=== PATIENT | female | born 1980 | race African-American/Black ===

== ENCOUNTER 2025-01-09 02:18 | Inpatient (IN) | payer OTHER, MEDICAID ==
[~2025-01-09] VITALS: Ht 165.1 cm; Wt 94.3 kg
[2025-01-09 02:20] VITALS: O2SAT 99
[2025-01-09 03:18] LABS: HEMATOCRIT. 24.8 % (36.0-48.0); MEAN PLATELET VOLUME 8.7 fl (7.4-10.4); PLATELET 90 x1000/uL (130-400); RED BLOOD CELL COUNT 3.78 mill/uL (4.2-5.4); RED CELL DISTRIBUTION WIDTH 21.8 % (11.6-14.6)
[2025-01-09 03:23] LABS: CREATININE 0.6 mg/dL (0.6-1.0); UREA NITROGEN BLOOD < 5 mg/dL (9-23)
[2025-01-09 03:25] LABS: ASPARTATE AMINOTRANSFERASE 85 IU/L (<34); BILIRUBIN DIRECT 0.8 mg/dL (<=3.0); BILIRUBIN TOTAL 1.8 mg/dL (0.1-1.0); PROTEIN TOTAL 7.3 g/dL (6.0-8.3); TROPONIN I HIGH SENSITIVITY < 4 ng/L (3.0-34)
[2025-01-09 04:18] LABS: HEMOGLOBIN. 6.5 g/dL (12.0-16.0)
[2025-01-09 04:30] LABS: HCG SCREEN NEGATIVE
[2025-01-09] MEDS: POTASSIUM CHLORIDE 20MEQ/PACKET PO ONE (05:12)
[2025-01-09] MEDS: ACETAMINOPHEN WITH CODEINE 300/30MG TABLET PO ONE (06:00)
[2025-01-09 07:17] LABS: EOSINOPHILS % MANUAL 2.0 % (0.0-5.0); LYMPHOCYTES % MANUAL 47.0 % (20.0-60.0); MONOCYTES % MANUAL 6.0 % (2.0-8.0); NEUTROPHILS % MANUAL 45.0 % (45.0-75.0); PLATELET ESTIMATE DECREASED
[2025-01-09 08:30] VITALS: BP 124/48; PULSE 88; RESP 18; RESP 8; TEMP 36.8; TEMP 36.8628; O2SAT 98
[2025-01-09] MEDS ORDERED: IPRATROPIUM/ALBUTEROL 0.5-3(2.5)MG/3ML NEB HHN PRN (09:00)
[2025-01-09] MEDS ORDERED: CLONIDINE 0.1MG TABLET PO PRN (09:00)
[2025-01-09] MEDS ORDERED: DOCUSATE SODIUM 100MG CAPSULE PO PRN (09:00)
[2025-01-09] MEDS ORDERED: MAGNESIUM/ALUMINUM HYDROXIDE/SIMETHICONE 30ML UDC PO PRN (09:00)
[2025-01-09] MEDS ORDERED: POTASSIUM CHLORIDE 20MEQ TABLET SR PO PRN (09:00)
[2025-01-09] MEDS ORDERED: HYDROCODONE/ACETAMINOPHEN 5/325MG TABLET PO PRN (09:00)
[2025-01-09 12:00] VITALS: BP 129/58; PULSE 85; RESP 18; TEMP 36.7; O2SAT 99
[2025-01-09 13:18] LABS: HEMATOCRIT. 25.9 % (36.0-48.0); HEMOGLOBIN. 7.2 g/dL (12.0-16.0); MEAN PLATELET VOLUME 9.1 fl (7.4-10.4); PLATELET 91 x1000/uL (130-400); RED BLOOD CELL COUNT 3.88 mill/uL (4.2-5.4); RED CELL DISTRIBUTION WIDTH 23.4 % (11.6-14.6)
[2025-01-09 13:29] LABS: CREATININE 0.5 mg/dL (0.6-1.0); UREA NITROGEN BLOOD < 5 mg/dL (9-23)
[2025-01-09 13:31] LABS: ASPARTATE AMINOTRANSFERASE 63 IU/L (<34); BILIRUBIN TOTAL 2.6 mg/dL (0.1-1.0); PROTEIN TOTAL 6.9 g/dL (6.0-8.3)
[2025-01-09 13:32] LABS: INR 1.3
[2025-01-09 14:35] LABS: FOLIC ACID (FOLATE) SERUM 4.19 ng/mL (>5.38); VITAMIN B12 SERUM 551 pg/mL (211-911)
[2025-01-09] MEDS: PANTOPRAZOLE SODIUM 40 MG/VIAL IV SCH (15:56)
[2025-01-09 17:57] LABS: LYMPHOCYTES % MANUAL 33.0 % (20.0-60.0); MONOCYTES % MANUAL 6.0 % (2.0-8.0); NEUTROPHILS % MANUAL 61.0 % (45.0-75.0); PLATELET ESTIMATE DECREASED
[2025-01-09 20:00] VITALS: BP 114/54; PULSE 85; RESP 17; TEMP 36.5; O2SAT 99
[2025-01-09] MEDS: ENOXAPARIN 40MG/0.4ML SYR SUBCUT SCH (21:35)
[2025-01-09] MEDS: ACETAMINOPHEN 325MG TABLET PO PRN (21:45)
[2025-01-09] MEDS: ONDANSETRON HCL 4MG/2ML INJ IV PRN (21:52)
[2025-01-10] VITALS: BP_SYST 115; BP_SYST 128; BP_DIAS 53; BP_DIAS 75; PULSE 80; PULSE 88; RESP 17; RESP 18; TEMP 36.3; TEMP 36.4; O2SAT 91; O2SAT 99
[2025-01-10 04:00] VITALS: BP 100/59; PULSE 83; RESP 17; TEMP 36.4; O2SAT 95
[2025-01-10 06:50] LABS: CREATININE 0.6 mg/dL (0.6-1.0); TROPONIN I HIGH SENSITIVITY < 4 ng/L (3.0-34)
[2025-01-10 06:51] LABS: LDL CHOLESTEROL 88 mg/dL (5-100); TRIGLYCERIDE 115 mg/dL (0-150); UREA NITROGEN BLOOD 6 mg/dL (9-23)
[2025-01-10 06:52] LABS: ASPARTATE AMINOTRANSFERASE 49 IU/L (<34); BILIRUBIN DIRECT 1.2 mg/dL (<=3.0); PHOSPHORUS 3.4 mg/dL (2.5-4.9)
[2025-01-10 06:53] LABS: BILIRUBIN TOTAL 2.9 mg/dL (0.1-1.0); PROTEIN TOTAL 6.6 g/dL (6.0-8.3)
[2025-01-10 07:04] LABS: HEMATOCRIT. 24.3 % (36.0-48.0); MEAN PLATELET VOLUME 8.8 fl (7.4-10.4); PLATELET 78 x1000/uL (130-400); RED BLOOD CELL COUNT 3.66 mill/uL (4.2-5.4); RED CELL DISTRIBUTION WIDTH 22.7 % (11.6-14.6)
[2025-01-10 07:40] LABS: HEMOGLOBIN. 6.9 g/dL (12.0-16.0)
[2025-01-10 08:00] VITALS: BP 105/45; PULSE 89; RESP 16; TEMP 36.5; O2SAT 100
[2025-01-10] MEDS: FERROUS SULFATE 325MG TABLET PO SCH (10:10)
[2025-01-10] MEDS: DOCUSATE SODIUM 100MG CAPSULE PO SCH (10:11)
[2025-01-10] MEDS: FOLIC ACID 1MG TABLET PO SCH (10:11)
[2025-01-10] MEDS: ASCORBIC ACID 500 MG TABLET PO SCH (10:11)
[2025-01-10 14:14] LABS: BAND% 4.0 % (1.0-6.0); BASOPHILS % MANUAL 1.0 % (0.0-2.0); EOSINOPHILS % MANUAL 3.0 % (0.0-5.0); LYMPHOCYTES % MANUAL 38.0 % (20.0-60.0); MONOCYTES % MANUAL 13.0 % (2.0-8.0); NEUTROPHILS % MANUAL 41.0 % (45.0-75.0); PLATELET ESTIMATE DECREASED
[2025-01-10] MEDS: MAGNESIUM 1 G PREMIX 100 ML IV SCH (15:24)
[2025-01-10 16:00] VITALS: BP 113/44; PULSE 101; RESP 16; TEMP 36.6; O2SAT 100
[2025-01-10] MEDS ORDERED: IOHEXOL-300 100 ML BOTTLE ONE ×2 (16:22→23:24)
[2025-01-10 17:47] LABS: RED CELL DISTRIBUTION WIDTH 23.3 % (11.6-14.6)
[2025-01-10 17:50] LABS: PLATELET 87 x1000/uL (130-400); RED BLOOD CELL COUNT 3.82 mill/uL (4.2-5.4)
[2025-01-10 20:00] VITALS: BP 90/44; PULSE 91; RESP 18; TEMP 36.4; O2SAT 99
[2025-01-10 22:05] LABS: CLARITY URINE CLEAR (CLEAR); COLOR URINE ORANGE (YELLOW); GLUCOSE URINE NEGATIVE (NEGATIVE); KETONES URINE NEGATIVE (NEGATIVE); LEUKOCYTE ESTERASE URINE 2+ (NEGATIVE); NITRITE URINE NEGATIVE (NEGATIVE); OCCULT BLOOD URINE 3+ (NEGATIVE); PH URINE 8.5 (4.5-8.0); PROTEIN URINE 2+ (NEGATIVE); SPECIFIC GRAVITY URINE 1.018 (1.005-1.030); UROBILINOGEN URINE 4.0 E.U./dL (0.2-1.0)
[2025-01-10 22:09] LABS: BACTERIA URINE 1+; RBC URINE TNTC /hpf (0-2); SQUAMOUS EPITHELIAL CELL URINE 1+ /lpf (RARE/1+)
[2025-01-10 22:24] LABS: *AMPHETAMINES SCREEN URINE NEGATIVE (NEGATIVE); *BARBITURATES SCREEN URINE NEGATIVE (NEGATIVE); *BENZODIAZEPINES SCREEN URINE NEGATIVE (NEGATIVE); *COCAINE SCREEN URINE NEGATIVE (NEGATIVE); CANNABINOID URINE SCREEN NEGATIVE (NEGATIVE); ECSTASY MDMA SCREEN URINE NEGATIVE (NEGATIVE); METHADONE URINE SCREEN NEGATIVE (NEGATIVE); OPIATES URINE SCREEN NEGATIVE (NEGATIVE); PHENCYCLIDINE URINE SCREEN NEGATIVE (NEGATIVE)
[2025-01-11] VITALS: BP 94/38; PULSE 84; RESP 18; TEMP 36.3; O2SAT 98
[2025-01-11 04:00] VITALS: BP 96/40; PULSE 82; RESP 18; TEMP 36.3; O2SAT 99
[2025-01-11 07:05] LABS: HEMATOCRIT. 26.0 % (36.0-48.0); HEMOGLOBIN. 7.2 g/dL (12.0-16.0); MEAN PLATELET VOLUME 8.6 fl (7.4-10.4); PLATELET 97 x1000/uL (130-400); RED BLOOD CELL COUNT 3.88 mill/uL (4.2-5.4); RED CELL DISTRIBUTION WIDTH 23.6 % (11.6-14.6)
[2025-01-11 07:25] LABS: CREATININE 0.6 mg/dL (0.6-1.0)
[2025-01-11 07:26] LABS: UREA NITROGEN BLOOD 6 mg/dL (9-23)
[2025-01-11 07:27] LABS: LACTATE DEHYDROGENASE 134 IU/L (120-246)
[2025-01-11 07:28] LABS: ASPARTATE AMINOTRANSFERASE 51 IU/L (<34); BILIRUBIN DIRECT 1.3 mg/dL (<=3.0); BILIRUBIN TOTAL 2.7 mg/dL (0.1-1.0); PHOSPHORUS 3.1 mg/dL (2.5-4.9); PROTEIN TOTAL 7.3 g/dL (6.0-8.3)
[2025-01-11 08:00] VITALS: BP 104/59; PULSE 88; RESP 18; TEMP 36.8; O2SAT 100
[2025-01-11 08:08] LABS: HEPATITIS A AB IGM NEGATIVE (Negative)
[2025-01-11 08:09] LABS: HEPATITIS B CORE AB IGM NEGATIVE (Negative); HEPATITIS C AB NON REACTIVE (Neg) (Negative)
[2025-01-11 12:00] VITALS: BP 96/58; PULSE 89; RESP 16; TEMP 36.4; O2SAT 98
[2025-01-11 14:38] LABS: BAND% 8.0 % (1.0-6.0); LYMPHOCYTES % MANUAL 34.0 % (20.0-60.0); MONOCYTES % MANUAL 12.0 % (2.0-8.0); NEUTROPHILS % MANUAL 46.0 % (45.0-75.0); PLATELET ESTIMATE DECREASED
[2025-01-11 16:00] VITALS: BP 98/49; PULSE 87; RESP 18; TEMP 36.6; O2SAT 98
[2025-01-11 20:00] VITALS: BP 98/51; PULSE 87; RESP 17; TEMP 37; O2SAT 93
[2025-01-12] VITALS: BP 101/58; PULSE 85; RESP 18; TEMP 36.9; O2SAT 97
[2025-01-12 04:00] VITALS: BP 103/59; PULSE 80; RESP 16; TEMP 36.4; O2SAT 97
[2025-01-12 08:00] VITALS: BP 100/60; PULSE 78; RESP 16; TEMP 36.9; O2SAT 98
[2025-01-12 12:00] VITALS: BP 94/54; PULSE 77; RESP 16; TEMP 36.9; O2SAT 97
[2025-01-12 13:11] LABS: HEMATOCRIT. 26.7 % (36.0-48.0); HEMOGLOBIN. 7.5 g/dL (12.0-16.0); MEAN PLATELET VOLUME 8.5 fl (7.4-10.4); PLATELET 120 x1000/uL (130-400); RED BLOOD CELL COUNT 3.88 mill/uL (4.2-5.4); RED CELL DISTRIBUTION WIDTH 24.1 % (11.6-14.6)
[2025-01-12 13:21] LABS: CREATININE 0.6 mg/dL (0.6-1.0); UREA NITROGEN BLOOD 7 mg/dL (9-23)
[2025-01-12 16:00] VITALS: BP 92/53; PULSE 81; RESP 18; TEMP 36.2; O2SAT 97
[2025-01-12] MEDS ORDERED: FOLI-43 PO (16:23)
[2025-01-12] MEDS ORDERED: ASCO500T20 PO (16:23)
[2025-01-12] MEDS ORDERED: FERR-63 PO (16:23)
[2025-01-12 17:54] LABS: BAND% 3.0 % (1.0-6.0); LYMPHOCYTES % MANUAL 25.0 % (20.0-60.0); METAMYELOCYTES % 1.0 % (0-0); MONOCYTES % MANUAL 7.0 % (2.0-8.0); MYELOCYTES % 1.0 % (0-0); NEUTROPHILS % MANUAL 63.0 % (45.0-75.0); PLATELET ESTIMATE SLIGHTLY DECREASED
[2025-01-12 20:00] VITALS: BP 95/40; PULSE 81; RESP 17; TEMP 37.2; O2SAT 99
[2025-01-13] VITALS: BP 112/46; PULSE 82; RESP 16; TEMP 36.9; O2SAT 100
[2025-01-13 04:18] VITALS: BP 112/56; PULSE 83; RESP 18; TEMP 36; O2SAT 99
[2025-01-13 05:10] LABS: CANCER ANTIGEN 125 15.3 U/mL (0.0-38.1); CARCINOEMBRYONIC AG - SEND OUT 2.2 ng/mL (0.0-4.7)
[2025-01-13 07:53] LABS: HEMATOCRIT. 26.3 % (36.0-48.0); HEMOGLOBIN. 7.3 g/dL (12.0-16.0); MEAN PLATELET VOLUME 8.8 fl (7.4-10.4); PLATELET 104 x1000/uL (130-400); RED BLOOD CELL COUNT 3.76 mill/uL (4.2-5.4); RED CELL DISTRIBUTION WIDTH 24.3 % (11.6-14.6)
[2025-01-13 07:55] LABS: CREATININE 0.7 mg/dL (0.6-1.0)
[2025-01-13 07:56] LABS: UREA NITROGEN BLOOD 7 mg/dL (9-23)
[2025-01-13 08:00] VITALS: BP 103/51; PULSE 80; RESP 16; TEMP 37; O2SAT 98
[2025-01-13 11:18] VITALS: BP 103/51; PULSE 80; RESP 16; TEMP 98.6
[2025-01-13 17:49] LABS: LYMPHOCYTES % MANUAL 32.0 % (20.0-60.0); MONOCYTES % MANUAL 16.0 % (2.0-8.0); NEUTROPHILS % MANUAL 52.0 % (45.0-75.0); PLATELET ESTIMATE DECREASED
== END 2025-01-13 12:45 | disposition home or self-care (01) | DRG 663 ==
LOC: ER 03:02 → 5WST 05:30 → EDBEDREQ 05:34 → EDBEDREQTM 05:34 → ENRESERV 05:43
PROVIDERS: ADMIT Family Medicine Adult Medicine; ATTEND Family Medicine Adult Medicine
PROC: 30233N1 Transfusion of Nonautologous Red Blood Cells into Peripheral Vein, Percutaneous Approach (ICD-10-PCS; principal; 2025-01-09)
DX: D50.9 Iron deficiency anemia, unspecified (principal); D61.818 Other pancytopenia; I24.9 Acute ischemic heart disease, unspecified; K83.8 Other specified diseases of biliary tract; F10.10 Alcohol abuse, uncomplicated; I11.0 Hypertensive heart disease with heart failure; B96.20 Unspecified Escherichia coli [E. coli] as the cause of diseases classified elsewhere; K76.6 Portal hypertension; K80.20 Calculus of gallbladder without cholecystitis without obstruction; E53.8 Deficiency of other specified B group vitamins; I50.9 Heart failure, unspecified; E83.42 Hypomagnesemia; E80.6 Other disorders of bilirubin metabolism; I86.8 Varicose veins of other specified sites; K57.30 Diverticulosis of large intestine without perforation or abscess without bleeding; F32.A Depression, unspecified; R63.4 Abnormal weight loss; N39.0 Urinary tract infection, site not specified; K70.30 Alcoholic cirrhosis of liver without ascites; D25.9 Leiomyoma of uterus, unspecified; J45.909 Unspecified asthma, uncomplicated; Z68.34 Body mass index [BMI] 34.0-34.9, adult
CPT/HCPCS: 36415; 71045; 74177; 76700; 76830; 76856; 80048; 80053; 80061; 80076; 80305; 81003; 82270; 82378; 82607; 82728; 82746; 82784; 82977; 83036; 83540; 83550; 83615; 83735; 83880; 84100; 84425; 84443; 84484; 84703; 85014; 85018; 85025; 85027; 85044; 85379; 86304; 86334; 86705; 86709; 86850; 86900; 86920; 87077; 87186; 87340; 93005; 93306; 93970; 99285; J1650; J2405; J2470; J3475; P9016; Q9967